=== PATIENT | male | born 1980 | race Caucasian/White ===

== ENCOUNTER 2017-10-26 07:24 | Inpatient (IN) ==
[2017-10-26] MEDS ORDERED: LIDOCAINE JEL 2% 1 TUBE 30GM TOPICAL ONE (07:54)
[2017-10-26] MEDS ORDERED: 0.9 % SODIUM CHLORIDE 1,000 ML IV ONE (08:11)
--- NOTE | 2017-10-26 08:18 | Emergency Department Note ---
Abdominal Pain HPI - General Chief Complaint: Abdominal Pain Stated Complaint: upper abd pain Time Seen by Provider: 10/26/17 07:37 Source: patient Mode of arrival: ambulatory Limitations: no limitations - History of Present Illness HPI Narrative: 37-year-old male with a history of midepigastric pain started in the middle the night. He is having no chest pain no shortness of breath patient is mentally challenged and unable to give us a thorough history although he tells us that he has had no vomiting there is been no diarrhea denies any chest pain there is no shortness of breath. He denies any urgency frequency or dysuria however his patient heart rate is in the low 30s and occasionally goes to the 20s. Blood pressure is maintained over 100 however on the ED it had dropped to than low 90s. Given fluids a quick [id number] 3 shows a hematocrit of 51 the glucose is 127 BUN is 27 and creatinine 1.2 sodium is 139 potassium is 3.7 - Related Data Allergies Allergy/AdvReac Type Severity Reaction Status Date / Time hay Allergy Unknown Unknown Uncoded 05/09/16 08:05 Review of Systems All systems ED: reviewed and negative except as stated. Constitutional: Denies: fever, chills Gastrointestinal: Reports: as per HPI, abdominal pain (Midepigastric pain). Denies: nausea, vomiting, diarrhea, constipation, hematochezia, melena, hematemesis, acid reflux, heart burn Genitourinary: Denies: dysuria Musculoskeletal: Denies: back pain Integumentary: Denies: rash Neurological: Denies: headache Psychiatric: Denies: anxiety Endocrine: Denies: fatigue Hematological/Lymphatic: Denies: easy bleeding Allergic/Immunologic: Denies: facial swelling Abdominal Pain PMH - Past Medical History Medical history: Reports: other (Downs syndrome, sleep apnea,) Surgical history ED: Reports: tonsillectomy Family history: Reports: other (Father hypertension hyperlipidemia) - Social History Smoking status: Never smoker Alcohol use: Reports: None Drug use: Reports: none Physical Exam Limitations: no limitations General appearance: alert Head: atraumatic, normocephalic Eye: Present: normal appearance, PERRL ENT: normal exam, normal oropharynx, mucous membranes dry, TM's normal bilaterally Neck: Present: normal inspection, full ROM, trachea midline Chest: Present: normal inspection, symmetric chest wall rise. Absent: tenderness Respiratory: Present: normal lung sounds bilaterally. Absent: respiratory distress, wheezes, stridor Cardiovascular: Present: regular rate, normal rhythm, bradycardia Abdominal: Present: soft, normal bowel sounds. Absent: distention, tenderness, guarding, rebound, rigidity Extremities: Present: normal inspection, full ROM. Absent: tenderness Back: Present: normal inspection, full ROM. Absent: tenderness, CVA tenderness (R), CVA tenderness (L), muscle spasm Neurological: Present: alert, oriented X3, CN II-XII intact, reflexes normal. Absent: motor sensory deficit Psychiatric: Present: normal affect, normal mood Course Vital Signs Temperature 96.9 F L 10/26/17 07:28 Respiratory Rate 22 10/26/17 07:28 Blood Pressure 117/56 10/26/17 07:28 Pulse Oximetry (%) 100 10/26/17 07:28 Temperature 96.9 F L 10/26/17 07:28 Pulse Rate 45 L 10/26/17 08:46 Respiratory Rate 17 10/26/17 08:46 Blood Pressure 120/71 10/26/17 08:46 Pulse Oximetry (%) 100 10/26/17 08:46 Abdominal Pain - MDM Narrative Medical decision making narrative: EKG shows severe bradycardia and his heart rate go down to the 20s at times. His blood pressure stayed above 100 however did go down to the low 90s. First Aid Attendant at [facility] has evaluated the EKG states just sinus arrhythmia with bradycardia no evidence of blocks. Commended continue workup for GI pain. Bedside ultrasound is been performed. Ultrasound reveals gallstones.. Awaiting for the laboratory test particular the liver function test. Patient patient transferred to the care of Dr. page at 0900 hrs. - Lab Data Result diagrams: 10/26/17 07:41 10/26/17 07:41 Lab Results 10/26/17 10/26/17 10/26/17 Range/Units 07:41 07:41 07:41 WBC 18.5 H (4.5-11.0) K/mcL RBC 5.68 (4.50-5.90) M/mcL Hgb 16.9 H (13.5-16.5) g/dL Hct 50.8 (41.0-55.0) % POC Hct 51.0 (41.0-55.0) % MCV 89.3 (80.0-100.0) fL MCH 29.7 (26.0-34.0) pg MCHC 33.2 (31.0-36.0) g/dL RDW 13.4 (11.5-14.5) % Plt Count 210 (140-440) K/mcL MPV 8.9 (7.4-10.4) fL Gran % 82.1 H (38.0-78.0) % Lymph % (Auto) 9.9 L (15.5-49.0) % [place] % (Auto) 5.6 (1.0-12.0) % Eos % (Auto) 2.2 (0.0-7.0) % Baso % (Auto) 0.2 (0.0-2.0) % Gran # 15.2 H (1.8-8.0) K/mcL Lymph # (Auto) 1.8 (1.5-4.8) K/mcL [place] # (Auto) 1.0 H (0.1-0.9) K/mcL Eos # (Auto) 0.4 (0.0-0.7) K/mcL Baso # (Auto) 0 (0.0-0.3) K/mcL POC Sodium 139 (133-145) mmol/L Sodium 138 (133-145) mmol/L POC Potassium 3.7 (3.3-5.1) mmol/L Potassium 3.9 (3.3-5.1) mmol/L POC Chloride 102 (96-108) mmol/L Chloride 99 (96-108) mmol/L Carbon Dioxide 24 (22-30) mmol/L POC Total CO2 26 (22-30) mmol/L Anion Gap 15.0 (8-16) POC BUN 27 H (6-20) mg/dl BUN 23 H (6-20) mg/dl Creatinine 1.2 (0.7-1.2) mg/dl POC Creatinine 1.2 (0.7-1.2) mg/dl GFR Calculation 76 Glucose 125 H (70-105) mg/dL POC Glucose 127 H (70-105) mg/dL Calcium 8.8 (8.6-10.4) mg/dl POC WB Ioniz Calcium 1.10 L (1.16-1.32) mmol/L Magnesium 1.9 (1.6-2.5) mg/dL Total Bilirubin 0.3 (0.0-1.0) mg/dL AST 19 (0-37) U/l ALT 27 (0-40) U/l Alkaline Phosphatase 88 (39-117) U/L CK-MB (CK-2) (0-4.9) ng/ml Myoglobin (28-72) ng/ml Troponin T < 0.01 (0-0.03) ng/ml Total Protein 7.0 (5.9-8.4) gm/dL Albumin 4.5 (3.2-5.2) gm/dL Globulin 2.5 (2.2-3.7) gm/dL Albumin/Globulin Ratio 1.8 (1.0-2.3) Ethyl Alcohol (<0.010) gm/dl 10/26/17 10/26/17 Range/Units 07:41 07:41 WBC (4.5-11.0) K/mcL RBC (4.50-5.90) M/mcL Hgb (13.5-16.5) g/dL Hct (41.0-55.0) % POC Hct (41.0-55.0) % MCV (80.0-100.0) fL MCH (26.0-34.0) pg MCHC (31.0-36.0) g/dL RDW (11.5-14.5) % Plt Count (140-440) K/mcL MPV (7.4-10.4) fL Gran % (38.0-78.0) % Lymph % (Auto) (15.5-49.0) % [place] % (Auto) (1.0-12.0) % Eos % (Auto) (0.0-7.0) % Baso % (Auto) (0.0-2.0) % Gran # (1.8-8.0) K/mcL Lymph # (Auto) (1.5-4.8) K/mcL [place] # (Auto) (0.1-0.9) K/mcL Eos # (Auto) (0.0-0.7) K/mcL Baso # (Auto) (0.0-0.3) K/mcL POC Sodium (133-145) mmol/L Sodium (133-145) mmol/L POC Potassium (3.3-5.1) mmol/L Potassium (3.3-5.1) mmol/L POC Chloride (96-108) mmol/L Chloride (96-108) mmol/L Carbon Dioxide (22-30) mmol/L POC Total CO2 (22-30) mmol/L Anion Gap (8-16) POC BUN (6-20) mg/dl BUN (6-20) mg/dl Creatinine (0.7-1.2) mg/dl POC Creatinine (0.7-1.2) mg/dl GFR Calculation Glucose (70-105) mg/dL POC Glucose (70-105) mg/dL Calcium (8.6-10.4) mg/dl POC WB Ioniz Calcium (1.16-1.32) mmol/L Magnesium (1.6-2.5) mg/dL Total Bilirubin (0.0-1.0) mg/dL AST (0-37) U/l ALT (0-40) U/l Alkaline Phosphatase (39-117) U/L CK-MB (CK-2) 1.2 (0-4.9) ng/ml Myoglobin < 25 L (28-72) ng/ml Troponin T (0-0.03) ng/ml Total Protein (5.9-8.4) gm/dL Albumin (3.2-5.2) gm/dL Globulin (2.2-3.7) gm/dL Albumin/Globulin Ratio (1.0-2.3) Ethyl Alcohol < 0.010 (<0.010) gm/dl Disposition Pt seen by METALLURGICAL TECHNICIAN/PA only: No Condition: Fair Referrals: Jose Hendrickson PA-C [Primary Care Provider] -
[2017-10-26 08:28] LABS: Basophils # (Auto) 0 K/mcL (0.0-0.3); Basophils % (Auto) 0.2 % (0.0-2.0); Eosinophils # (Auto) 0.4 K/mcL (0.0-0.7); Eosinophils % (Auto) 2.2 % (0.0-7.0); Granulocytes % (Auto) 82.1 % (38.0-78.0); Lymphocytes # (Auto) 1.8 K/mcL (1.5-4.8); Lymphocytes % (Auto) 9.9 % (15.5-49.0); Mean Cell Volume 89.3 fL (80.0-100.0); Mean Corpuscular HGB Conc 33.2 g/dL (31.0-36.0); Mean Corpuscular Hemoglobin 29.7 pg (26.0-34.0); Monocytes % (Auto) 5.6 % (1.0-12.0); Platelet Count 210 K/mcL (140-440); RBC 5.68 M/mcL (4.50-5.90); Red Cell Distribution Width 13.4 % (11.5-14.5)
[2017-10-26 08:53] LABS: ALT/SGPT 27 U/l (0-40); Albumin 4.5 gm/dL (3.2-5.2); Albumin/Globulin Ratio 1.8 (1.0-2.3); Alkaline Phosphatase 88 U/L (39-117); Blood Urea Nitrogen 23 mg/dl (6-20)
[2017-10-26 08:57] LABS: Myoglobin < 25 ng/ml (28-72)
[2017-10-26 09:07] LABS: Creatine Kinase MB 1.2 ng/ml (0-4.9)
[2017-10-26 09:14] LABS: Creatine Kinase 49 IU/L (24-195)
[2017-10-26] MEDS ORDERED: PIPERACILLIN SODIUM/TAZOBACTAM 3.375 GM in DEXTROSE 5% IN WATER 50 ML IV ONE (09:42)
--- NOTE | 2017-10-26 09:43 | Emergency Department Note ---
Abdominal Pain HPI - General Chief Complaint: Abdominal Pain Stated Complaint: upper abd pain Time Seen by Provider: 10/26/17 07:37 Source: patient Mode of arrival: ambulatory Limitations: no limitations - Related Data Allergies Allergy/AdvReac Type Severity Reaction Status Date / Time hay Allergy Unknown Unknown Uncoded 05/09/16 08:05 Review of Systems Constitutional: Denies: fever, chills Gastrointestinal: Reports: as per HPI, abdominal pain (Midepigastric pain). Denies: nausea, vomiting, diarrhea, constipation, hematochezia, melena, hematemesis, acid reflux, heart burn Genitourinary: Denies: dysuria Musculoskeletal: Denies: back pain Integumentary: Denies: rash Neurological: Denies: headache Psychiatric: Denies: anxiety Endocrine: Denies: fatigue Hematological/Lymphatic: Denies: easy bleeding Allergic/Immunologic: Denies: facial swelling Abdominal Pain PMH - Past Medical History Medical history: Reports: other (Downs syndrome, sleep apnea,) Family history: Reports: other (Father hypertension hyperlipidemia) - Social History Smoking status: Never smoker Alcohol use: Reports: None Drug use: Reports: none Physical Exam Limitations: no limitations General appearance: alert Course Vital Signs Temperature 96.9 F L 10/26/17 07:28 Respiratory Rate 22 10/26/17 07:28 Blood Pressure 117/56 10/26/17 07:28 Pulse Oximetry (%) 100 10/26/17 07:28 Temperature 96.9 F L 10/26/17 07:28 Pulse Rate 45 L 10/26/17 08:46 Respiratory Rate 17 10/26/17 08:46 Blood Pressure 120/71 10/26/17 08:46 Pulse Oximetry (%) 100 10/26/17 08:46 Abdominal Pain - [facility] Narrative Medical decision making narrative: I discussed this case with Dr. Hodges and he will be admitted to the hospital for cholecystectomy. We will give him Zosyn now. Pain is much better controlled now with morphine. I did make Dr. Hodges aware of the bradycardia that the patient had and that he was bradycardic after his tonsillectomy as well. - Lab Data Lab results reviewed: Yes I reviewed the patient's lab results. Result diagrams: 10/26/17 07:41 10/26/17 07:41 Lab Results 10/26/17 10/26/17 10/26/17 Range/Units 07:41 07:41 07:41 WBC 18.5 H (4.5-11.0) K/mcL RBC 5.68 (4.50-5.90) M/mcL Hgb 16.9 H (13.5-16.5) g/dL Hct 50.8 (41.0-55.0) % POC Hct 51.0 (41.0-55.0) % MCV 89.3 (80.0-100.0) fL MCH 29.7 (26.0-34.0) pg MCHC 33.2 (31.0-36.0) g/dL RDW 13.4 (11.5-14.5) % Plt Count 210 (140-440) K/mcL MPV 8.9 (7.4-10.4) fL Gran % 82.1 H (38.0-78.0) % Lymph % (Auto) 9.9 L (15.5-49.0) % [place] % (Auto) 5.6 (1.0-12.0) % Eos % (Auto) 2.2 (0.0-7.0) % Baso % (Auto) 0.2 (0.0-2.0) % Gran # 15.2 H (1.8-8.0) K/mcL Lymph # (Auto) 1.8 (1.5-4.8) K/mcL [place] # (Auto) 1.0 H (0.1-0.9) K/mcL Eos # (Auto) 0.4 (0.0-0.7) K/mcL Baso # (Auto) 0 (0.0-0.3) K/mcL POC Sodium 139 (133-145) mmol/L Sodium 138 (133-145) mmol/L POC Potassium 3.7 (3.3-5.1) mmol/L Potassium 3.9 (3.3-5.1) mmol/L POC Chloride 102 (96-108) mmol/L Chloride 99 (96-108) mmol/L Carbon Dioxide 24 (22-30) mmol/L POC Total CO2 26 (22-30) mmol/L Anion Gap 15.0 (8-16) POC BUN 27 H (6-20) mg/dl BUN 23 H (6-20) mg/dl Creatinine 1.2 (0.7-1.2) mg/dl POC Creatinine 1.2 (0.7-1.2) mg/dl GFR Calculation 76 Glucose 125 H (70-105) mg/dL POC Glucose 127 H (70-105) mg/dL Calcium 8.8 (8.6-10.4) mg/dl POC WB Ioniz Calcium 1.10 L (1.16-1.32) mmol/L Magnesium 1.9 (1.6-2.5) mg/dL Total Bilirubin 0.3 (0.0-1.0) mg/dL AST 19 (0-37) U/l ALT 27 (0-40) U/l Alkaline Phosphatase 88 (39-117) U/L Total Creatine Kinase (24-195) IU/L CK-MB (CK-2) (0-4.9) ng/ml Myoglobin (28-72) ng/ml Troponin T < 0.01 (0-0.03) ng/ml Total Protein 7.0 (5.9-8.4) gm/dL Albumin 4.5 (3.2-5.2) gm/dL Globulin 2.5 (2.2-3.7) gm/dL Albumin/Globulin Ratio 1.8 (1.0-2.3) Ethyl Alcohol (<0.010) gm/dl 10/26/17 10/26/17 Range/Units 07:41 07:41 WBC (4.5-11.0) K/mcL RBC (4.50-5.90) M/mcL Hgb (13.5-16.5) g/dL Hct (41.0-55.0) % POC Hct (41.0-55.0) % MCV (80.0-100.0) fL MCH (26.0-34.0) pg MCHC (31.0-36.0) g/dL RDW (11.5-14.5) % Plt Count (140-440) K/mcL MPV (7.4-10.4) fL Gran % (38.0-78.0) % Lymph % (Auto) (15.5-49.0) % [place] % (Auto) (1.0-12.0) % Eos % (Auto) (0.0-7.0) % Baso % (Auto) (0.0-2.0) % Gran # (1.8-8.0) K/mcL Lymph # (Auto) (1.5-4.8) K/mcL [place] # (Auto) (0.1-0.9) K/mcL Eos # (Auto) (0.0-0.7) K/mcL Baso # (Auto) (0.0-0.3) K/mcL POC Sodium (133-145) mmol/L Sodium (133-145) mmol/L POC Potassium (3.3-5.1) mmol/L Potassium (3.3-5.1) mmol/L POC Chloride (96-108) mmol/L Chloride (96-108) mmol/L Carbon Dioxide (22-30) mmol/L POC Total CO2 (22-30) mmol/L Anion Gap (8-16) POC BUN (6-20) mg/dl BUN (6-20) mg/dl Creatinine (0.7-1.2) mg/dl POC Creatinine (0.7-1.2) mg/dl GFR Calculation Glucose (70-105) mg/dL POC Glucose (70-105) mg/dL Calcium (8.6-10.4) mg/dl POC WB Ioniz Calcium (1.16-1.32) mmol/L Magnesium (1.6-2.5) mg/dL Total Bilirubin (0.0-1.0) mg/dL AST (0-37) U/l ALT (0-40) U/l Alkaline Phosphatase (39-117) U/L Total Creatine Kinase 49 (24-195) IU/L CK-MB (CK-2) 1.2 (0-4.9) ng/ml Myoglobin < 25 L (28-72) ng/ml Troponin T (0-0.03) ng/ml Total Protein (5.9-8.4) gm/dL Albumin (3.2-5.2) gm/dL Globulin (2.2-3.7) gm/dL Albumin/Globulin Ratio (1.0-2.3) Ethyl Alcohol < 0.010 (<0.010) gm/dl - Radiology Data Radiology results reviewed: Yes I reviewed the patient's radiology results. Disposition Pt seen by RADIO DIVISION LIEUTENANT/PA only: No Clinical Impression: Down's syndrome, Cholecystitis Disposition: Xfer As Inpt ([facility]) Condition: Good Referrals: Jose Hendrickson PA-C [Primary Care Provider] - Time of Disposition: 09:43
[2017-10-26] MEDS ORDERED: PIPERACILLIN SODIUM/TAZOBACTAM 3.375 GM VIAL IV ONE (10:14)
[2017-10-26] MEDS ORDERED: ONDANSETRON 4 MG/2 ML VIAL IV PRN (10:18)
--- NOTE | 2017-10-26 11:33 | XRay Report ---
CLINICAL INFORMATION: Chest pain COMPARISON: None. FINDINGS: Heart size, mediastinum and pulmonary vessels are normal. There is minor atelectasis in the right medial base - no infiltrates. No effusions. Bones and soft tissues are normal IMPRESSION: Minor atelectasis - right base Interpreted and Authenticated by: Travis Choe 10/26/17
--- NOTE | 2017-10-26 11:34 | XRay Report ---
CLINICAL INFORMATION: Abdominal pain COMPARISON: None. FINDINGS: There is a 17 mm calcification in the right upper quadrant which could potentially indicate a gallstone. The stool gas pattern is normal. No free air, organomegaly or soft tissue mass IMPRESSION: 17 mm right upper quadrant calcification - possible gallstone Interpreted and Authenticated by: Travis Choe 10/26/17
--- NOTE | 2017-10-26 11:44 | Ultrasound Report ---
CLINICAL INFORMATION: Abdominal pain COMPARISON: None. FINDINGS: There are two large stones in the gallbladder - 1.1 cm and 1.3 cm respectively.. Gallbladder wall is mildly thickened with focal tenderness suggesting associated cholecystitis. Common bile duct is normal - 5 mm. The liver and pancreas are normal in size and echotexture. No free fluid IMPRESSION: Two large stones in the gallbladder, 1.1 cm and 1.3 cm respectively. One of the stones is lodged in the gallbladder neck. In addition, the gallbladder wall is thickened with overlying focal tenderness suggesting cholecystitis Liver, common bile duct and pancreas are unremarkable Interpreted and Authenticated by: Travis Choe 10/26/17
[2017-10-26] MEDS ORDERED: HYDROmorphone 2 MG/ML VIAL IV PRN (13:41)
[2017-10-26] MEDS ORDERED: fentaNYL 100 MCG/2 ML VIAL IV PRN (13:55)
--- NOTE | 2017-10-26 13:55 | General Surg History&Physical ---
History of Present Illness Patient information: Note initiated : 10/26/17 at 1:52 pm Service Date, if different from initiated Date: [] Patient: Obie Harmon a 37 y/o M admitted on 10/26/17 for upper abd pain. Chief Complaint: [. recurrent abdominal pain] HPI: Mr. Harmon is a 37 year old M history of recurrent abdominal pain that started during the night. He became very severe about 6:30 this morning. He had bloating and belching but no nausea or vomiting. He denied back pain. He was seen in the emergency room because of recurrent abdominal pain. He was noted to have a tender epigastrium and right upper quadrant. He also had a white count of 18,000.abdominal ultrasound shows 2 large gallstones with one stone impacted in the neck of the gallbladder and gallbladder wall thickening compatible with acute cholecystitis. Patient is admitted and will be started on antibiotics. He will be scheduled for laparoscopic cholecystectomy in the morning. Review of Systems All systems PM: reviewed and no additional remarkable complaints except as stated - Cardiovascular slow heart rate - Respiratory no cough, no dyspnea on exertion, no wheezing - Gastrointestinal abdominal pain, belching, bloating, cramping, heartburn - Hematologic/Lymphatic no easy bleeding, no easy bruising, no lymphadenopathy - Allergic/Immunologic no tongue swelling, no throat swelling, no uticaria, no wheezing, no lip swelling Past History Past medical history: History of chronic bradycardia with symptomatic bradycardia during anesthesia induction in the past Down syndrome History of sleep apnea Past surgical history: No surgery Past family history: Mother age 66 healthy Father age 66 with hypertension Sister with thyroiditis Past social history: Lives with parents employed Never tobacco use Occasional alcohol use Never drug use Medications and Allergies Home Medications Medication Instructions Recorded Confirmed Type No Known Home Meds [No Known Home 10/26/17 10/26/17 History Meds] Allergies Allergy/AdvReac Type Severity Reaction Status Date / Time hay Allergy Unknown Unknown Uncoded 05/09/16 08:05 Exam Temp Pulse Resp BP Pulse Ox 98.1 F 54 L 16 97/59 99 10/26/17 11:12 10/26/17 10:25 10/26/17 11:12 10/26/17 11:12 10/26/17 11:12 - General physical appearance well developed, well nourished, no distress, other (Down's facies) - Eyes PERRL, normal ocular movement - ENT normal pinna, normal nares, normal mucosa, no hearing loss, no congestion - Head Head exam IM: Present: atraumatic, normocephalic - Neck no masses, no bruits, trachea midline, no lymphadectomy, no venous distension - Cardiovascular Cardiovascular exam IM: Present: normal rate and rhythm, bradycardia ( heart rate 56 and regular), +S1, +S2. Absent: JVD - Respiratory normal expansion, normal respiratory effort, clear to percussion, clear to auscultation - Abdomen Abdomen: Present: soft, tender ( right upper quadrant and epigastric tenderness ; no palpable mass), bowel sounds Hernia: Present: none - Genitourinary Present: normal penis with no external lesions - Integumentary Present: no rash, no growths, no abnormal pigmentation - Neurologic Present: normal coordination, normal sensation - Musculoskeletal Present: normal gait, normal posture - Psychiatric Present: oriented to time, oriented to person, oriented to place, speech is normal, memory intact Assessment and Plan (1) Cholelithiasis and acute cholecystitis without obstruction Clear liquids today Nothing by mouth after midnight Zosyn 3.375 g IV every 6 Scheduled for cholecystectomy at noon tomorrow Status: Acute (2) Down's syndrome Status: Chronic (3) Bradycardia Baseline EKG for evaluation Monitor heart rate closely during induction of anesthesia and with insufflation of the abdomen with plans to treat accordingly Status: Acute
[2017-10-26] MEDS: 0.9 % SODIUM CHLORIDE 1,000 ML IV SCH ×2 (14:03→23:40)
[2017-10-26] MEDS: 0.9 % SODIUM CHLORIDE 10 ML SYRINGE IV SCH ×2 (14:04→21:17)
[2017-10-26] MEDS: PIPERACILLIN SODIUM/TAZOBACTAM 3.375 GM in DEXTROSE 5% IN WATER 50 ML IV SCH ×3 (15:09→23:41)
[2017-10-26 16:02] LABS: Amphetamine Screen,Urine NONE DETECTED (NONDETECTED); Benzodiazepines Screen,Urine NONE DETECTED (NONDETECTED); Cocaine Screen,Urine NONE DETECTED (NONDETECTED); Opiate Screen,Urine NONE DETECTED (NONDETECTED); Oxycodone, Urine Screen NONE DETECTED (NONDETECTED)
[2017-10-26] MEDS: FAMOTIDINE/PF 20 MG/2 ML VIAL IV SCH (21:17)
[2017-10-27] MEDS: PIPERACILLIN SODIUM/TAZOBACTAM 3.375 GM in DEXTROSE 5% IN WATER 50 ML IV SCH ×2 (05:17→11:09)
[2017-10-27] MEDS: 0.9 % SODIUM CHLORIDE 10 ML SYRINGE IV SCH ×2 (05:19→14:46)
[2017-10-27 05:28] LABS: Mean Cell Volume 89.1 fL (80.0-100.0); Mean Corpuscular Hemoglobin 30.3 pg (26.0-34.0); Platelet Count 170 K/mcL (140-440); Red Cell Distribution Width 13.8 % (11.5-14.5)
[2017-10-27 05:43] LABS: ALT/SGPT 24 U/l (0-40); Albumin 3.3 gm/dL (3.2-5.2); Albumin/Globulin Ratio 1.6 (1.0-2.3); Alkaline Phosphatase 70 U/L (39-117); Bilirubin,Direct < 0.2 mg/dL (0.0-0.3); Blood Urea Nitrogen 10 mg/dl (6-20); Gamma Glutamyl Transpeptidase 29 U/L (8-61); Uric Acid 3.7 mg/dL (2.5-8.0)
[2017-10-27 06:58] LABS: Band Neutrophils % 3 % (0-10); Eosinophils % (Manual) 1 % (0-7); Lymphocytes % 24 % (15-49); Monocytes % (Manual) 5 % (1-12); Platelet Estimate NORMAL (NORMAL); RBC Morphology NORMAL (NORMAL); Segmented Neutrophils % 66 % (38-78)
[2017-10-27] MEDS: FAMOTIDINE/PF 20 MG/2 ML VIAL IV SCH ×2 (08:42→20:05)
[2017-10-27] MEDS: 0.9 % SODIUM CHLORIDE 1,000 ML IV SCH ×3 (08:42→14:45)
[2017-10-27] MEDS ORDERED: PROPOFOL 200 MG/20 ML VIAL IV ONE (12:35)
[2017-10-27] MEDS ORDERED: GLYCOPYRROLATE 0.2 MG/ML VIAL IV ONE (12:35)
[2017-10-27] MEDS ORDERED: ONDANSETRON 4 MG/2 ML VIAL IV ONE (12:35)
[2017-10-27] MEDS ORDERED: DEXAMETHASONE 10 MG/ML VIAL IV ONE (12:35)
[2017-10-27] MEDS ORDERED: ePHEDrine 50 MG/ML AMPUL IV ONE (12:35)
[2017-10-27] MEDS ORDERED: fentaNYL 250 MCG/5 ML VIAL IV ONE (12:35)
[2017-10-27] MEDS ORDERED: NEOSTIGMINE 1 MG/ML VIAL IV ONE (12:35)
[2017-10-27] MEDS ORDERED: MIDAZOLAM 5 MG/5 ML VIAL IV ONE (12:35)
[2017-10-27] MEDS ORDERED: ROCURONIUM 10 MG/ML ML IV ONE (12:35)
[2017-10-27] MEDS ORDERED: LIDOCAINE HCL/PF 100 MG/5 ML SYRINGE IV ONE (12:35)
[2017-10-27] MEDS ORDERED: ACETAMINOPHEN 1,000 MG/100 ML BOTTLE IV ONE (12:53)
[2017-10-27] MEDS ORDERED: fentaNYL 100 MCG/2 ML VIAL IV PRN (12:53)
[2017-10-27] MEDS ORDERED: ONDANSETRON 4 MG/2 ML VIAL IV PRN ×2 (12:53→14:24)
[2017-10-27] MEDS ORDERED: FLUMAZENIL 0.1 MG/ML ML IV PRN (12:53)
[2017-10-27] MEDS ORDERED: diphenhydrAMINE 50 MG/ML VIAL IV PRN (12:53)
[2017-10-27] MEDS ORDERED: ATROPINE SULFATE 0.4 MG/ML VIAL IV PRN (12:53)
[2017-10-27] MEDS ORDERED: NALOXONE HCL 0.4 MG/ML VIAL IV PRN (12:53)
[2017-10-27] MEDS ORDERED: KETOROLAC 30 MG/ML VIAL IV PRN (12:53)
[2017-10-27] MEDS ORDERED: BENZOCAINE/MENTHOL 1 LOZENGE PO PRN (12:53)
[2017-10-27] MEDS ORDERED: LACTATED RINGERS 250 ML IV PRN (12:53)
[2017-10-27] MEDS ORDERED: MEPERIDINE 25 MG/ML SYRINGE IV PRN (12:53)
[2017-10-27] MEDS ORDERED: ePHEDrine 50 MG/ML AMPUL IV PRN (12:53)
[2017-10-27] MEDS ORDERED: IPRATROPIUM/ALBUTEROL 3 ML AMPUL.NEB NEB PRN (12:53)
[2017-10-27] MEDS ORDERED: PROMETHAZINE 25 MG/ML VIAL IV PRN (12:53)
[2017-10-27] MEDS ORDERED: LACTATED RINGERS 1,000 ML IV SCH (13:00)
--- NOTE | 2017-10-27 13:29 | Brief Operative Note ---
Date of procedure: 10/27/17 Pre-op diagnosis: acute cholecystitis with cholecystitis Post-op diagnosis: other (acute cholecystitis with cholelithiasis) Procedure: laparoscopic cholecystectomy Grafts/Implants: No Anesthesia: GETA Findings: inflamed gallbladder with cystic duct obstruction Complications: none Surgeon: Walter Hodges Estimated blood loss (cc): 15 Specimens Removed/Pathology: other (gallbladder) Disposition: PACU
[2017-10-27] MEDS ORDERED: oxyCODONE HCL 5 MG TABLET PO PRN (13:44)
[2017-10-27] MEDS ORDERED: ACETAMINOPHEN 1,000 MG/100 ML BOTTLE IV PRN ×2 (13:44→14:24)
[2017-10-27] MEDS ORDERED: 0.9 % SODIUM CHLORIDE 1,000 ML IV SCH (13:45)
[2017-10-27] MEDS ORDERED: PIPERACILLIN SODIUM/TAZOBACTAM 3.375 GM in DEXTROSE 5% IN WATER 50 ML IV SCH (18:00)
[2017-10-27] MEDS: oxyCODONE HCL 5 MG TABLET PO PRN (20:05)
[2017-10-28] MEDS: 0.9 % SODIUM CHLORIDE 1,000 ML IV SCH (04:30)
[2017-10-28 05:40] LABS: Mean Cell Volume 88.7 fL (80.0-100.0); Mean Corpuscular HGB Conc 34.1 g/dL (31.0-36.0); Mean Corpuscular Hemoglobin 30.3 pg (26.0-34.0); Platelet Count 155 K/mcL (140-440); RBC 5.19 M/mcL (4.50-5.90); Red Cell Distribution Width 13.5 % (11.5-14.5)
[2017-10-28 06:00] LABS: ALT/SGPT 40 U/l (0-40); Albumin 3.4 gm/dL (3.2-5.2); Albumin/Globulin Ratio 1.5 (1.0-2.3); Alkaline Phosphatase 77 U/L (39-117); Bilirubin,Direct < 0.2 mg/dL (0.0-0.3); Blood Urea Nitrogen 10 mg/dl (6-20); Gamma Glutamyl Transpeptidase 32 U/L (8-61); Uric Acid 3.6 mg/dL (2.5-8.0)
[2017-10-28 06:52] LABS: Band Neutrophils % 6 % (0-10); Lymphocytes % 4 % (15-49); Monocytes % (Manual) 5 % (1-12); Platelet Estimate NORMAL (NORMAL); RBC Morphology NORMAL (NORMAL); Segmented Neutrophils % 85 % (38-78)
[2017-10-28] MEDS: oxyCODONE HCL 5 MG TABLET PO PRN (09:28)
[2017-10-28] MEDS: FAMOTIDINE/PF 20 MG/2 ML VIAL IV SCH (09:32)
[2017-10-28] MEDS ORDERED: LEVOFLOXACIN 750 MG/150 ML BAG IV ONE (11:15)
--- NOTE | 2017-10-28 13:42 | Surgical Pathology Report ---
HISTOLOGY SPECIMEN MICROSCOPIC DIAGNOSIS GALLBLADDER, CHOLECYSTECTOMY: -- CHRONIC CHOLECYSTITIS WITH CHOLELITHIASIS. (RLF:shaylaf) CLINICAL HISTORY Upper abdominal pain. PROCEDURAL IMPRESSION Cholelithiasis; cholecystitis. GROSS DESCRIPTION Received in formalin labeled with the patient information, is a 7.6 x 2.0 x 2.0 cm pink-barton to red-barton gallbladder. The serosal surface is smooth and glistening with a small amount of attached yellow-barton adipose tissue. There are multiple metal clips present including one on the cystic duct. The lumen contains viscous, sticky dark-green material and multiple rough surfaced, yellow-green stones ranging in size from 0.1 to 1.6 cm in greatest dimension. The mucosa is pink-barton and velvety. The wall is up to 0.3 cm thick. Grossly no lesions are identified. Part Time Receptionist sections submitted - one cassette. (STS:siri) Electronically Signed by: Zaria Solis M.D.
--- NOTE | 2017-10-28 14:14 | Discharge Summary ---
Providers - Providers Patient information: Note initiated : 10/28/17 at 2:12 pm Service Date, if different from initiated Date: [] Patient: Obie Harmon 37 y/o M admitted on 10/26/17 for Upper Abd Pain/ Cholecystitis. Chief Complaint: [] Date of admission: 10/26/17 Discharge date: 10/28/17 Attending physician: Walter Hodges Hospitalization Hospital course: 37-year-old male who was admitted on October 16 with acute cholecystitis with cholelithiasis. He underwent laparoscopic cholecystectomy on October 16 with finding of obstructed cystic duct with acute cholecystitis. His surgery proceeded uneventfully. He has done well except for elevation in his white blood count is 19,000. He is afebrile however. Patient is stable and will be discharged on 7 days of Levaquin. Discharge diagnosis: acute cholecystitis with cholelithias Reason for admission: abdominal pain with nausea and vomiting Procedures: Laparoscopic cholecystectomy Complications: None Exam Temp Pulse Resp BP Pulse Ox 99.4 F H 69 16 100/66 97 10/28/17 12:16 10/28/17 12:16 10/28/17 08:00 10/28/17 12:16 10/28/17 12:16 - General physical appearance well developed, well nourished, no distress - Eyes PERRL, normal ocular movement - ENT normal pinna, normal nares, normal mucosa, no hearing loss, no congestion - Head Head exam IM: Present: atraumatic, normocephalic - Neck no masses, no bruits, trachea midline, no lymphadectomy, no venous distension - Cardiovascular Cardiovascular exam IM: Present: normal rate and rhythm - Respiratory normal expansion, normal respiratory effort, clear to percussion, clear to auscultation - Abdomen Abdomen: Present: soft, tender (mild tenderness around the port sites), bowel sounds Hernia: Present: none - Genitourinary Present: normal penis with no external lesions - Integumentary Present: no rash, no growths, no abnormal pigmentation - Neurologic Present: normal coordination, normal sensation - Musculoskeletal Present: normal gait, normal posture - Psychiatric Present: oriented to time, oriented to person, oriented to place, speech is normal, memory intact Discharge Plan - Patient/Caregiver Discharge Instructions Activity: increase activity as tolerated Diet: Low Fat - Follow up Plan Follow up with: Jose Hendrickson PA-C [Primary Care Provider] - Disposition: Home, Self-Care Prognosis: Good Rehab Potential: Good I certify that the patient requires SNF services.: No Overall status at discharge: patient is not back to baseline Pending Studies Resuscitation Status Full Code Diet Regular Diet Start ThuOctober 28 1103 Famotidine (Pepcid) 20 mg IV Q12 YARIEL Last Admin: 10/28/17 09:32 Dose: 20 mg Admin: 10/27/17 20:05 Dose: 20 mg Sodium Chloride (Sodium Chloride 0.9%) 1,000 mls @ 75 mls/hr IV .[id number] YARIEL Last Admin: 10/28/17 04:30 Dose: 75 mls/hr Infusion: 10/28/17 03:58 Dose: 75 mls/hr Admin: 10/27/17 14:38 Dose: 75 mls/hr Oxycodone HCl (Roxicodone) 10 mg PO Q4HP PRN PRN Reason: PAIN LEVEL 3-6 Last Admin: 10/28/17 09:28 Dose: 10 mg Admin: 10/27/17 20:05 Dose: 10 mg Shift Summary 10/28/17 04:18 Shift Summary by Ryan Gonzalez Up w/SBA to BR. IV to RFA running NS @ 75mL/hr. Tolerating full liquid diet w/ no complaints of nausea. Diet to be increased to Regular at breakfast. Minimal complaints of abdominal pain. Received 2 tabs Roxicodone x1. 4 lap sites to abdomen closed w/stevie and covered w/tegaderm. Scant amount of sanguinous drainage noted at each site. Ambulated in halls x2. Hx of down syndrome and bradycardia. Sister Elizabeth at bedside throughout night. Lots of family support. Very pleasant and cooperative w/cares. Initialized on 10/28/17 04:18 - END OF NOTE
--- NOTE | 2017-11-24 07:33 | Operative Note ---
DATE OF OPERATION: 10/27/2017 PREOPERATIVE DIAGNOSIS: Acute cholecystitis with cholelithiasis. POSTOPERATIVE DIAGNOSIS: Acute cholecystitis with cholelithiasis. PROCEDURE: Laparoscopic cholecystectomy. FINDINGS: Acutely inflamed gallbladder with cystic duct obstruction. SURGEON: Walter Hodges MD DESCRIPTION OF PROCEDURE: Under general anesthesia, the patient's abdomen was prepped and draped in a sterile field. A time-out procedure was carried out as per protocol. Supraumbilical incision was made. Veress needle was inserted uneventfully. Abdomen was insufflated with 2 liters of CO2. A 12 mm port was placed. Laparoscope was placed. The gallbladder was visualized and was acutely inflamed and tightly engorged. Under videoscopic guidance, a 12 mm port and two 5 mm ports were placed in the right subcostal region. The gallbladder was decompressed with a Weck needle. The gallbladder was then grasped and positioned. Acute adhesions to the gallbladder were taken down using blunt dissection with [place] forceps and with the Kitner the dissector. The infundibulum of the gallbladder was isolated. It was grasped and the gallbladder was then positioned. Cystic duct was dissected and was very short. Cystic artery was dissected onto the wall of the gallbladder, clipped with 4 clips and divided. The cystic duct was then placed on stretch and it was confirmed that it only went between the gallbladder and the common duct. Cystic duct was transected using an Endo LUCAS stapler. The gallbladder was then from the infrahepatic bed using electrocautery. It was placed in an Endopouch and retrieved. Irrigation was carried out. There was mild bleeding in the bed, which was controlled with electrocautery. A drain was not needed. CO2 was allowed to escape from the abdomen and the ports were removed. Fascia at the umbilicus was closed with 0 Vicryl. Skin incisions were closed with stevie. Tegaderm dressings were placed. The patient was awakened from anesthesia uneventfully, transferred to a bed and taken to the postanesthetic care unit in stable, satisfactory condition. [email or web address] Job ID: [id number] Doc ID: [id number] Walter Hodges M.D.
== END 2017-10-28 15:45 | disposition home or self-care (01) | DRG 419 ==
LOC: ED 07:24 → MEDSUR 10:47
PROVIDERS: ADMIT Family Medicine Adult Medicine; ATTEND Family Medicine Adult Medicine